=== PATIENT | female | born 1980 ===

== ENCOUNTER 2024-05-14 08:18 | Day surgery (SDC) | payer BC ==
[~2024-05-14 08:18] MED LIST: Albuterol 0.083% 2.5 MG/3 ML Neb Soln NEB PRN; HYDROmorphone 1 MG/ML Syringe IVPUSH PRN; Metoclopramide 10 MG/2 ML SDV IVPUSH PRN; Morphine 2 MG/ML SYRINGE IVPUSH PRN; Naloxone 0.4 MG/ML SDV IVPUSH PRN; Ondansetron 4 MG/2 ML SDV IVPUSH PRN; Sodium Chloride 0.9% 10 ML Syringe FLUSH PRN; Sodium Chloride 0.9% 2.5 ML Syringe FLUSH PRN; Sodium Chloride 0.9% 20 ML SDV IV PRN; ceFAZolin 2 GM in Sodium Chloride 0.9% 50 ML IV ONE; droPERidol 5 MG/2 ML SDV IVPUSH PRN; fentaNYL 50 MCG/ML SDV IVPUSH PRN
[2024-05-14] MEDS: Lactated Ringers 1,000 ML IV SCH (08:57)
[2024-05-14] MEDS: Scopalamine 1mg/3day Transdermal Patch TOP ONE (09:23)
[2024-05-14] MEDS ORDERED: Bupivacaine 0.5% 30 ML SDV ONE (09:28)
[2024-05-14] MEDS ORDERED: Propofol 200 MG/20 ML SDV ONE (09:44)
[2024-05-14] MEDS ORDERED: fentaNYL 100 MCG/2 ML SDV ONE (09:44)
[2024-05-14] MEDS ORDERED: Midazolam 1 MG/ML 2 ML SDV ONE (09:45)
[2024-05-14] MEDS ORDERED: ceFAZolin 1 GM Vial ONE (09:59)
[2024-05-14] MEDS ORDERED: Phenylephrine HCl In 0.9% NaCl 1 MG/10 ML Syringe ONE (10:02)
[2024-05-14] MEDS ORDERED: Dexamethasone 4 MG/ML 5 ML MDV ONE (10:08)
[2024-05-14] MEDS ORDERED: Ondansetron 4 MG/2 ML SDV ONE (10:08)
[2024-05-14] MEDS ORDERED: ePHEDrine 50 MG/ML SDV ONE (10:13)
[2024-05-14 14:08] VITALS: BP 118/74; PULSE 101
== END 2024-05-14 11:40 | disposition home or self-care (01) ==
LOC: MW.SDS 08:18
PROVIDERS: ATTEND Surgery
DX: R22.32 Localized swelling, mass and lump, left upper limb (principal)
CPT/HCPCS: 23075; 81025; A9270; J0665; J0690; J1100; J2250; J2371; J2405; J2704; J3010; J7120; 00300; J3490